=== PATIENT | female | born 1950 | race Caucasian/White ===

== ENCOUNTER → 2019-12-03 14:33 | Outpatient (BNVA) | payer MEDICARE, SELFPAY | PROVIDERS: Family Provider Family Medicine; PCP Family Medicine; Visit Provider Internal Medicine Cardiovascular Disease | DX: I10 Essential (primary) hypertension (principal); R60.0 Localized edema; R07.89 Other chest pain | CPT/HCPCS: 80048 ==

== ENCOUNTER 2019-12-06 12:05 | Outpatient (CLI) | payer MEDICARE, SELFPAY ==
--- NOTE | 2019-12-06 12:12 | XR_ITS ---
WS: [id number] LEFT KNEE: 3 VIEW(S) TECHNIQUE: AP, oblique(s) and lateral. HISTORY: KNEE PAIN LEFT COMPARISON: None available. No fracture or dislocation. Diffuse osteopenia. Hypertrophic osteophytes from the medial lateral joint lines and also at the hurt llofemoral joint space. Most significant narrowing is at the patellofemoral joint space. No joint effusion. No soft tissue abnormality. XR/XR knee LT 3V* 61275 IMPRESSION: Moderate tricompartment osteoarthritis, most significant involving the patellof emoral joint space.
== END 2019-12-06 12:06 | disposition home or self-care (01) ==
LOC: RADWPI 12:10
PROVIDERS: Family Provider Family Medicine; PCP Family Medicine; Referring Provider Family Medicine; Visit Provider Family Medicine
DX: M17.12 Unilateral primary osteoarthritis, left knee (principal); M25.562 Pain in left knee
CPT/HCPCS: 73562

== ENCOUNTER → 2021-09-08 11:17 | Outpatient (BNVA) | payer MEDICARE, SELFPAY | PROVIDERS: Family Provider Family Medicine; PCP Family Medicine; Visit Provider Specialist | DX: M25.562 Pain in left knee (principal); M17.12 Unilateral primary osteoarthritis, left knee | CPT/HCPCS: 73560; 73565 ==

== ENCOUNTER 2022-03-18 13:16 | Emergency (ER) | payer OTHER, MEDICARE, SELFPAY ==
--- NOTE | 2022-03-18 13:31 | XR_ITS ---
WS: [email or web address] Exam: XR wrist RT 2V [id number] Date/Time of Exam: 03/18/2022 1:34 PM Reason For Exam: eval for injuries There is an impacted comminuted fracture of the distal radial metaphysis. There is shortening. There is mild dorsal angulation of the articulating surface. There is an avulsion fracture of the ulnar sty loid. Soft tissue swelling about the wrist. XR/XR wrist RT 2V 53184 IMPRESSION: 1. Fracture distal radius with some dorsal angulation as noted above. 2. Avulsion fracture of the ulnar styloid.
--- NOTE | 2022-03-18 13:31 | XR_ITS ---
WS: [id number] Exam: XR forearm RT 2V 72384 Date/Time of Exam: 03/18/2022 1:34 PM Reason For Exam: eval for injuryy Again noted are fractures of the distal radius and ulna as previously described. Remaining aspects of the forearm are intact. Soft tissues are unremarkable. XR/XR forearm RT 2V 69851 IMPRESSION: 1. Fractures of the distal right radius and ulna as previously noted. Remaining aspects of the forearm are intact.
[2022-03-18 13:35] VITALS: BP 157/87; PULSE 68; RESP 18; TEMP 36.6; O2SAT 98; BMI 35.4
--- NOTE | 2022-03-18 14:43 | XR_ITS ---
WS: [email or web address] Exam: XR elbow RT 2V [id number] Date/Time of Exam: 03/18/2022 3:14 PM Reason For Exam: eval for elbow fracture No acute fracture or dislocation. No joint effusion. Minimal DJD. XR/XR elbow RT 2V 82221 IMPRESSION: 1. No acute fracture or dislocation.
--- NOTE | 2022-03-18 14:46 | W.ED.GENADLT ---
HPI - General Adult General: Chief complaint: Fall Stated complaint: right arm & wrist injury Time Seen by Provider: 03/18/22 13:58 History of Present Illness: Patient is 72-year-old female presents emergency room with complaints of right wrist pain after fall. Patient was eating at a [employer] restaurant when she slipped and fell onto the right side. Patient has no other complaints other than right wrist pain and swelling. Patient has pain in her head, is not on anticoagulation. Denies any other medical past medical problem. Onset:12pm Duration:2 hrs Location:outside Severity:moderate Associated symptoms: Deny chest pain, dyspnea, nausea, rash, palpitations or vomiting Review of Systems Const: Denies: fever(s) or chills Eyes: Denies: change in vision ENMT: Denies: mouth pain Card: Denies: chest pain or palpitations Resp: Denies: dyspnea or non-productive cough GI: Denies: abdominal pain, nausea, vomiting or diarrhea : Denies: dysuria Musc: Reports: extremity pain (+R forearm/wrist pain and swelling) Skin/Breast: Denies: rash or new lesions Neuro: Denies: weakness in extremities Psych: Reports: other (Normal mood) Amado/Lymph: Denies: easy bruising PFSH ED PFSH: Medical History Atypical chest pain Benign essential HTN Right leg swelling Family History Other Aortic valve disorder CAD (coronary artery disease) Diabetes Hypertension Stroke Social History Smoking and tobacco status: never smoked Alcohol intake: never Physical Exam Const: COMMON NORMALS: alert HENMT: COMMON NORMALS: atraumatic HEAD & SCALP: atraumatic MOUTH: moist mucous membranes not abnormal Eye: COMMON NORMALS: EOMs intact bilaterally and conjunctivae normal CONJUNCTIVA: Yes conjunctivae normal Neck/C-Spine: COMMON NORMALS: full ROM and supple Resp: COMMON NORMALS: normal respiratory effort and clear to auscultation bilaterally AUSCULTATION: clear to auscultation bilaterally Cardio: COMMON NORMALS: regular rate RATE: regular rate GI: COMMON NORMALS: Soft to palpation and non-tender PALPATION: Yes Soft to palpation Extremity: OTHER: + Decreased range of motion of right wrist due to significant pain, swelling and mild deformity of the right wrist, cap refill less than 2 seconds, 2+ radial pulses radial pusles, sensation intact in the right radial/median/ulnar distribution, patient is able to perform Ok/thumbs up/fist signs without difficulties Neuro: SENSORIUM/ORIENTATION: Yes alert MOTOR EXAM: No Abnormal motor strength present and Other motor observations present (no focal motor deficits) Psych: COMMON NORMALS: speech normal SPEECH: Yes normal speech MOOD & AFFECT: Yes euthymic mood Procedures Nerve Block Nerve Block 1: Time out performed: Yes Local Anesthetic: lidocaine 1% Amount of anesthesia used (mL): 6 Side: right Nerve Blocks: other (hematoma block around the R distal radial fracture) Procedure Successful: Yes Patient Tolerated Procedure: well Complications: none Additional Comments: Because of this patient's pain at the site of the fracture. I performed a local hematoma block to help alleviate the pain and allow for the possibility of closed reduction of this patient's fracture. ? Before doing this procedure, I did check the patient's distal neurovascular status. There is some mild decreased range of motion which I attributed to the pain but no evidence of obvious vascular or neurological compromise. ? Then, I identified the appropriate landmarks, and I sterilely prepped the skin at the insertion site.?? Using plain lidocaine, I inserted the needle and withdrew to make sure I was not in a blood vessel, then I slowly injected approximately 5 or 6 mls in the region of the fracture site.? The patient appeared to tolerate the procedure well and her pain was improved.?? Repeat evaluation of the distal extremity revealed no change or compromise in the vascular integrity. Orthopedic Fracture Reduction Fracture #1: Time Out Performed: Yes Side: right Fracture Reduction Location: radius Analgesia: hematoma block Technique: direct manipulation and finger traps Post Reduction X-rays Demonstrate: acceptable reduction Post-reduction neuro exam: intact Post-reduction vascular exam: intact Splint Applied: Yes Patient Tolerated Procedure: well and no complications Course Vital Signs: Vital signs: Vital Signs Temperature 97.8 F 03/18/22 13:35 Pulse Rate 67 03/18/22 17:18 Respiratory Rate 20 H 03/18/22 17:18 Blood Pressure 167/91 03/18/22 17:18 Pulse Oximetry 99 03/18/22 17:18 MDM - General Adult Medical Decision Making 72-year-old female presenting with similar complaints of right wrist pain and swelling. On physical exam, neurovascular intact in the right extremity, right distal radial/ulnar tenderness palpation with swelling and mild deformity. X-ray shows distal radial fracture with mild dorsal angulation. Case was discussed with Dr. Gregorio who recommended reduction. Please refer to the procedure note for reduction after a informed consent. A hematoma block was performed after an informed consent. Patient is placed in a radial gutter splint. Vascular intact post splint. Post reduction x-ray shows improvement in angulation. I have given patient follow up with our lead case manager to be seen by Dr. Gregorio for follow up of fracture. Patient aware of a call from our lead case manager to schedule for appointment(s) and verbalizes understanding of the importance of following up. Rx percocet PRN pain Disposition: Discharge. Patient counseled regarding diagnostic impression, treatment plan. Patient given ED strict return precautions to return for continuation, worsening, or development of new symptoms. Instructed to f/u w/ Dr. Gregorio regarding symptoms today. Patient verbalized understanding. She is given strict return precaution for any signs of compartment syndrome. Lab Data Radiology Impressions Forearm X-Ray 03/18/22 13:31 IMPRESSION: 1. Fractures of the distal right radius and ulna as previously noted. Remaining aspects of the forearm are intact. Elbow X-Ray 03/18/22 14:43 IMPRESSION: 1. No acute fracture or dislocation. Wrist X-Ray 03/18/22 16:39 IMPRESSION: Improved alignment of the comminuted fracture of the distal radius and ulnar styloid process avulsion fracture post reduction. Imaging Data Other Imaging: Radiologist's impression: [address] [place] [address] XRay Report Signed Patient: Rachel Villalba Unit #: [id number] : 1950 Age/Sex: 72 / F ADM Date: 03/18/22 Loc: ER Room/Bed: Attending Dr: Ordering Provider/Ordering MD: Radha Maradiaga MD Date of Service: 03/18/22 Procedure(s): XR wrist RT 2V 16982 Accession Number(s): [id number] Report Number: [id number] WS: [email or web address] Exam: XR wrist RT 2V 40563 Date/Time of Exam: 03/18/2022 1:34 PM Reason For Exam: eval for injuries There is an impacted comminuted fracture of the distal radial metaphysis. There is shortening. There is mild dorsal angulation of the articulating surface. There is an avulsion fracture of the ulnar styloid. Soft tissue swelling about the wrist. XR/XR wrist RT 2V 90979 IMPRESSION: 1. Fracture distal radius with some dorsal angulation as noted above. 2. Avulsion fracture of the ulnar styloid. ? Dictated By: Arash Gu DO Signed By: Arash Gu DO Signed Date/Time: 03/18/22 1419 DD/ [address] [place] [address] XRay Report Signed Patient: Rachel Villalba Unit #: [id number] : 1950 Age/Sex: 72 / F ADM Date: 03/18/22 Loc: ER Room/Bed: Attending Dr: Ordering Provider/Ordering MD: Radha Maradiaga MD Date of Service: 03/18/22 Procedure(s): XR forearm RT 2V 23352 Accession Number(s): [id number] Report Number: [id number] WS: [email or web address] Exam: XR forearm RT 2V 01482 Date/Time of Exam: 03/18/2022 1:34 PM Reason For Exam: eval for injuryy Again noted are fractures of the distal radius and ulna as previously described. Remaining aspects of the forearm are intact. Soft tissues are unremarkable. XR/XR forearm RT 2V 68552 IMPRESSION: 1. Fractures of the distal right radius and ulna as previously noted. Remaining aspects of the forearm are intact. ? Dictated By: Arash Gu DO Signed By: Arash Gu DO Signed Date/Time: 03/18/22 1421 DD/ [address] [place] [address] XRay Report Signed Patient: Rachel Villalba Unit #: [id number] : 1950 Age/Sex: 72 / F ADM Date: 03/18/22 Loc: ER Room/Bed: Attending Dr: Ordering Provider/Ordering MD: Radha Maradiaga MD Date of Service: 03/18/22 Procedure(s): XR wrist RT 2V 48511 Accession Number(s): [id number] Report Number: [id number] PROCEDURE INFORMATION: Exam: XR Right Wrist Exam date and time: 03/18/2022 4:43 PM Age: 72 years old Clinical indication: Screening exam; Post reduction TECHNIQUE: Imaging protocol: XR Right wrist. Views: 1 or 2 views. COMPARISON: CR XR wrist RT 2V [id number] 03/18/2022 1:46 PM FINDINGS: Bones/joints: Improved alignment of the comminuted fracture of the distal radius and ulnar styloid process avulsion fracture post reduction. 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 Soft tissues: Normal. XR/XR wrist RT 2V 89434 IMPRESSION: Improved alignment of the comminuted fracture of the distal radius and ulnar styloid process avulsion fracture post reduction. ? Dictated By: David Izaguirre DO Signed By: David Izaguirre DO Signed Date/Time: 03/18/22 1700 DD/ [address] [address] XRay Report Signed Patient: Rachel Villalba Unit #: [id number] : 1950 Age/Sex: 72 / F ADM Date: 03/18/22 Loc: ER Room/Bed: Attending Dr: Ordering Provider/Ordering MD: Radha Maradiaga MD Date of Service: 03/18/22 Procedure(s): XR wrist RT 2V 46714 Accession Number(s): [id number] Report Number: [id number] PROCEDURE INFORMATION: Exam: XR Right Wrist Exam date and time: 03/18/2022 4:43 PM Age: 72 years old Clinical indication: Screening exam; Post reduction TECHNIQUE: Imaging protocol: XR Right wrist. Views: 1 or 2 views. COMPARISON: CR XR wrist RT 2V 70045 03/18/2022 1:46 PM FINDINGS: Bones/joints: Improved alignment of the comminuted fracture of the distal radius and ulnar styloid process avulsion fracture post reduction. 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 Soft tissues: Normal. XR/XR wrist RT 2V 53272 IMPRESSION: Improved alignment of the comminuted fracture of the distal radius and ulnar styloid process avulsion fracture post reduction. ? Dictated By: David Izaguirre DO Signed By: David Izaguirre DO Signed Date/Time: 03/18/22 1700 DD/ 1643 Discharge Plan Discharge Patient Disposition: Home Clinical Impression: Radial head fracture Condition: Stable Prescriptions: New Percocet 5-325 mg tablet 1 tab PO Q8H PRN (Reason: pain) Qty: 9 0RF No Action losartan 50 mg tablet 50 mg PO DAILY 0RF celecoxib [Celebrex] 200 mg capsule 200 mg PO DAILY 0RF Discharge Orders: Discharge ED (Routine); Ordered 03/18/22 Ordered By: Radha Maradiaga Referrals: Terry Mensah DO [Primary Care Provider] - Discharge Diet: Advance as tolerated Discharge Activity: Increase activity as tolerated Patient Instructions: Arm Fracture in Adults (ED), Opioid Safety Activity Restrictions/Additional Instructions: Our lead case manager will have you follow-up with Dr. Gregorio in the next few days. You would be expected to have a phone call with our lead case manager who will put you on the schedule. You can expect a call from us in the next 2-3 days. If you don't hear from us, call us back in the emergency room at [phone]. Take off the splint if you have any significant pain, numbness, inability to move your finger swelling, or any new concerning complaints. Take your pain medicine as instructed. Come back to the emergency room you have new external complaints. Coding Level of Care Code ED Fine Grade Bulldozer Operator for Veronika Glover Exam Comprehensive
[2022-03-18] MEDS: diphenhydrAMINE 50 mg/mL SDV 1mL IVP (15:52)
--- NOTE | 2022-03-18 15:53 | PC.NURSE ---
Dr acevedo used lidocaine and benadryl for injection to the right wrist pt was then placed in finger traps wrist reduced by pt tolerated well splint made with 4 in inch ortho glass and 2 inch mick and 4 inch mick pt tolerated well, sling applied
--- NOTE | 2022-03-18 16:39 | XRR_ITS ---
PROCEDURE INFORMATION: Exam: XR Right Wrist Exam date and time: 03/18/2022 4:43 PM Age: 72 years old Clinical indication: Screening exam; Post reduction TECHNIQUE: Imaging protocol: XR Right wrist. Views: 1 or 2 views. COMPARISON: CR XR wrist RT 2V 75007 03/18/2022 1:46 PM FINDINGS: Bones/joints: Improved alignment of the comminuted fracture of the distal radius and ulnar styloid process avulsion fracture post reduction. 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 Soft tissues: Normal. XR/XR wrist RT 2V 38234 IMPRESSION: Improved alignment of the comminuted fracture of the distal radius and ulnar styloid process avulsion fracture post reduction.
[2022-03-18 17:18] VITALS: BP 167/91; PULSE 67; RESP 20; O2SAT 99
--- NOTE | 2022-03-21 09:52 | DCPLANNER ---
Addendum entered by Mckenzie Ryder 03/22/22 08:38: Patient had a follow up appointment scheduled for 03.21.[address] Gregorio at ortho - patient did attend appointment. Original Note: slot operations manager had message to schedule a follow up appointment for patient with ortho. slot operations manager sent patients information to the front office staff at ortho. Patients information will be printed and reviewed. Clinic will call patient with appointment information.
== END 2022-03-18 17:16 | disposition home or self-care (01) ==
PROVIDERS: Emergency Provider Emergency Medicine; PCP Family Medicine
DX: S52.501A Unspecified fracture of the lower end of right radius, initial encounter for closed fracture (principal); S52.611A Displaced fracture of right ulna styloid process, initial encounter for closed fracture; W01.0XXA Fall on same level from slipping, tripping and stumbling without subsequent striking against object, initial encounter; Y93.89 Activity, other specified; Y92.511 Restaurant or cafe as the place of occurrence of the external cause
CPT/HCPCS: 25605; 64450; 73070; 73090; 73100; 99283; J1200

== ENCOUNTER 2022-03-21 16:22 | Outpatient (CLI) | payer OTHER, SELFPAY | END 2022-03-21 16:23 | disposition home or self-care (01) | LOC: SPT 16:23 | PROVIDERS: PCP Family Medicine; Visit Provider Specialist | DX: Z46.89 Encounter for fitting and adjustment of other specified devices (principal); S52.591D Other fractures of lower end of right radius, subsequent encounter for closed fracture with routine healing; X58.XXXD Exposure to other specified factors, subsequent encounter | CPT/HCPCS: 97760; L3982 ==

== ENCOUNTER → 2022-04-18 14:51 | Day surgery (SDC) | payer OTHER, MEDICARE, SELFPAY | PROVIDERS: PCP Family Medicine; Visit Provider Specialist | DX: S52.501G Unspecified fracture of the lower end of right radius, subsequent encounter for closed fracture with delayed healing (principal); S52.601G Unspecified fracture of lower end of right ulna, subsequent encounter for closed fracture with delayed healing; W19.XXXD Unspecified fall, subsequent encounter | CPT/HCPCS: 73110; 99214 ==

== ENCOUNTER 2022-04-21 11:10 | Day surgery (SDC) | payer OTHER, SELFPAY ==
[2022-04-20 09:21] VITALS: BMI 34.3
[2022-04-21] VITALS (7 sets, daily range): BP systolic 100–179; BP diastolic 72–115; PULSE 62–80; RESP 15–18; TEMP 36.2–36.9; O2SAT 91–99
--- NOTE | 2022-04-21 | XR_ITS ---
WS: [id number] Exam: XR wrist RT 2V [id number] Date/Time of Exam: 04/21/2022 12:00 AM Reason For Exam: OR PICS RT WRIST AP and lateral C-arm images of the right wrist are submitted for evaluation. Comparison made to prior study 04/18/2022. There is volar plate and screw fixation involving a fracture of the distal radius. Alignment is anato luz for healing. There is also a transverse fracture through the base of the ulnar styloid unchanged in appearance. XR/XR wrist RT 2V 77037 IMPRESSION: 1. Internal fixation involving a fracture of the distal radius now in the anato luz position for healing. Ulnar styloid fracture.
--- NOTE | 2022-04-21 | SCC_ITS ---
Procedure done: Takedown of early malunion with open reduction internal fixation of right distal radius fracture including bone grafting with [place] DBM plus putty with cancellous bone 74.6 seconds of fluoroscopic guidance, for a cumulative dose of 1.19 mGy, was provided to Dr. Gregorio by the radiology department. C-arm images of the right wrist were saved for the patient's permanent record. RANCHOD
[2022-04-21] MEDS: sodium chloride 0.9% 1,000 ML 30 ML IV (11:55)
[2022-04-21] MEDS: acetaminophen 1,000 MG/100 ML PIGGYBACK 400 MG IV (11:55)
[2022-04-21 12:20] LABS: Blood Urea Nitrogen 21 mg/dL (8-23); Calcium 9.6 mg/dL (8.5-10.5); Carbon Dioxide 26 mmol/L (22-29); Chloride 106 mmol/L (98-107); Creatinine Clr Calc Pharmacy 71.3868; Glomerular Filtration Rate 70.9 mL/min (90-130); Glucose 89 mg/dL (65-115); Osmolality Calculated 296 mOsm/kg (285-295); Sodium 142 mmol/L (136-145)
--- NOTE | 2022-04-21 12:39 | ANES.PREANE2 ---
Pre-Anesthetic Assessment Height/Weight: Height 1.63 m Weight 90.718 kg Temp Pulse Resp BP Pulse Ox 98.5 F 62 18 179/115 98 04/21/22 11:31 04/21/22 11:31 04/21/22 11:31 04/21/22 11:31 04/21/22 11:31 Preop Diagnosis: Closed distal radius and ulnar fractures Operation Date: 04/21/22 13:00 Proposed Procedures p Wrist ORIF Distal Radius RT WRIST W/BONE GRAFTING 23722/S52.5(Right) - Gia Gregorio MD Familial anesthetic complications: None Was Beta Arnaldo taken within 24 hours: N/A Was Clonidine taken within 24 hours: N/A Last intake: Intake Last Liquid Date 04/20/22 Last Liquid Time 22:00 Last Solid Date 04/20/22 Last Solid Time 22:00 Social No alcohol and No tobacco Exam alert, oriented x 3, clear to auscultation bilaterally and regular rate & rhythm Airway Mallampati: Class II Dentition: full Pulmonary None reported CV/HEM Hypertension None reported Hepatic None reported GI None reported Metabolic None reported Musc/skel None reported Neuropsych None reported Anesthetic Plan Anesthesia: General and Regional (specify below) Risk of > 500 ml blood loss (7ml/kg in children): No Medications/Allergies Home Medications Medication Instructions Recorded Confirmed Last Taken Type losartan 50 mg tablet 50 mg PO DAILY tab 12/03/19 04/21/22 04/20/22 History celecoxib 200 mg capsule (Celebrex) 200 mg PO DAILY 09/08/21 04/21/22 04/21/22 History oxycodone-acetaminophen 5 mg-325 1 tab PO Q8H PRN #9 tab 03/18/22 04/21/22 03/18/22 Rx mg tablet (Percocet) Fast form cast #1 ea 03/21/22 04/18/22 Unknown Rx Allergies Allergy/AdvReac Type Severity Reaction Status Date / Time amlodipine Allergy Unknown edema Verified 04/20/22 09:19 Current Medications Generic Name Dose Route Start Last Admin Trade Name Freq PRN Reason Stop Dose Admin Sodium Chloride 1,000 mls @ 30 mls/hr 04/21/22 11:30 04/21/22 11:55 Sodium Chloride 0.9% IV 04/22/22 11:29 30 mls/hr .Q24H ESTEPHANIA Administration PFSH Anesthesia Medical History Atypical chest pain Benign essential HTN Right leg swelling Family History Other Aortic valve disorder CAD (coronary artery disease) Diabetes Hypertension Stroke Social History Smoking and tobacco status: never smoked Alcohol intake: never Data Anesthesia : 04/21/22 11:45 BMP 04/21/22 11:45 Sodium 142 Potassium 4.0 Chloride 106 Carbon Dioxide 26 BUN 21 Creatinine 0.8 Glucose 89 Calcium 9.6 Cardiac Studies: No Data to Display
--- NOTE | 2022-04-21 12:39 | ANES.PROC ---
Anesthesia Procedures Procedure/Date: 04/21/22 Nerve Block ^: Nerve Block 1: Main Anesthesia: general anesthesia Time Out Performed: Yes Consent: requested by attending/covering physician, from patient, risks and benefits reviewed and patient agrees to proceed Nerve block location: axillary (R) Nerve block position: supine Anesthetic Used: ropivicaine 0.5% (30) and with decadron (4 mg) Ultrasound used to: recognize landmarks and visualize and ID brachial plexus Interscalene/Femoral BLK: 2 stimuplex 22 g needle used for position and inplane approach, visualize local anesthetic spread and no vascular puncture identified Injection: neg aspiration of heme Patient Tolerated Procedure: well Complications: none
--- NOTE | 2022-04-21 12:58 | P.HPUD_ITS ---
Surgery/Procedure H&P Update DATE OF PROCEDURE: April 21, 2022 DATE H&P PERFORMED: 04/18/22 H&P UPDATE INFORMATION: I have reviewed H&P completed within last 30 days, I have examined patient prior to procedure, No changes to prior documentation and H&P is in [facility] EMR on date indicated PREOP DIAGNOSIS: Closed distal radius and ulnar fractures PLANNED PROCEDURE: Operation Date: 04/21/22 13:00 Proposed Procedures p Wrist ORIF Distal Radius RT WRIST W/BONE GRAFTING /S52.5(Right) - Gia Gregorio MD Related Problem List Diagnoses (1) Closed fracture of distal ends of right radius and ulna: Qualifiers: Encounter type: subsequent encounter Fracture healing: with delayed healing Qualified Code(s): S52.501G - Unspecified fracture of the lower end of right radius, subsequent encounter for closed fracture with delayed healing; S52.601G - Unspecified fracture of lower end of right ulna, subsequent encounter for closed fracture with delayed healing
[2022-04-21] MEDS: CELEcoxib 200 mg Capsule PO (13:05)
[2022-04-21] MEDS: ceFAZolin 1,000 mg SDV 1000 MG IRRIGATION (13:47)
--- NOTE | 2022-04-21 15:05 | P.OP_ITS ---
Operative Report Date of procedure: April 21, 2022 Pre-op diagnosis: Closed right distal radius and ulnar fractures with loss of reduction and early malunion Post-op diagnosis: Closed right distal radius and ulnar fractures with loss of reduction and early malunion Post-op findings: Malunion with bone loss at the fracture site. Procedure done: Takedown of early malunion with open reduction internal fixation of right distal radius fracture including bone grafting with [place] DBM plus putty with cancellous bone Implants: [place] extra small short 3-hole narrow right volar wrist plate, distal radius with bone grafting including Jevon DBM plus putty with cancellous bone chips, 10 cc. 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 Significa nt shortening of the distal radius. Condition: stable Disposition: PACU (Then to same-day surgery for discharge home with family) Brief History: This 72-year-old female patient presented after a fall while at a [employer]. 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 DOI 03/18/22. Patient is 4 weeks post injury, but she presented to the office with obvious malposition of her fracture over the previous imaging studies. After discussion with the patient and due to the significant shortening of the radius relative to the ulna, it was recommended that she undergo takedown of her early malunion and open reduction internal fixation to include bone grafting. The patient was in agreement. Consents were signed. Questions were answered. Procedure: Patient was brought to the operating theater, and after undergoing adequate general anesthesia, per LMA, ASA 2, the patient's right upper extremity was prepped and draped in usual fashion utilizing DuraPrep.? Preoperatively, supplemental block was placed uneventfully in the preop holding area. The patient had a tourniquet placed high on the arm prior to prepping and draping.? Following prepping and draping, the arm was exsanguinated and the tourniquet was elevated.? Total tourniquet time was 71 minutes at 250 mmHg.? Prior to commencement of the surgical procedure, a surgical pause was performed.? At the time of the surgical pause, we confirmed the site and side of surgery as well as the patient's identity and preoperative surgical markings.? We also confirmed availability of equipment and appropriate preoperative IV antibiotics which was Ancef 2 g.? Fluoroscopy was also brought into position so that we could visualize the fracture and hardware throughout the surgical procedure.? The fracture was evaluated prior to tourniquet placement. Following elevation of the tourniquet as well as the surgical pause, appropriate plate was chosen. The skin was marked for appropriate incision length and location. An incision was made along the palmaris longus and continued down onto the volar surface of the radius.? Care was taken to avoid injury throughout the surgical procedure to the median nerve as well as to the radial artery.? The flexor carpi radialis was retracted medially.? We were able to essentially elevate the sheath of the flexor carpi radialis, and then I was able to place my finger directly onto the distal radius.? For the most part, the patient did her own dissection at the time of her injury, but there was early healing of the pronator quadratus.? Soft tissues were elevated off the distal radius to allow access to the fracture and also to the volar aspect of the distal radial shaft.? Reduction required takedown of the fibrous nonunion. Elevation of soft tissues from the distal fragment as well as the proximal fragment was then required to allow manipulation of the fracture with a Bartow and [place] elevator secondary to the significant displacement and angulation.? Fluoroscopy was used to determine whether or not the reduction was appropriate.? We were able to reduce the fracture nearly anatomically, and bone graft was placed in the form of DBM putty plus to help fill the void left by the reduction. We then evaluated the plate and chose the extra small, short narrow [place] volar wrist plate. The plate was attached proximally and distally without difficulty.? A combination of locking and 1 nonlocking screws were utilized to attach the plate.? We had excellent fixation and reduction of the fracture. Fluoroscopy was utilized during the procedure.? Once the plate was fully attached, we had a near anatomic position to the distal radius and the distal radius was out to length.? Being satisfied with position, the area was copiously irrigated. There were no fascial tissues to close, and therefore, we closed the subcutaneous tissues with 3-0 interrupted Monocryl.? Skin was closed in a subcuticular fashion with 4-0 Monocryl.?Sterile dressing was then placed consisting of Dermabond, Steri-Strips, OpSite, fluffed fluffs, sterile soft roll, a volar splint, and an Vladimir wrap. The tourniquet was released after 71 minutes. There were no complications. There were no specimens. The procedure was well tolerated. Plan is the patient will be discharged home. Related Problem List Diagnoses (1) Closed fracture of distal ends of right radius and ulna:
== END 2022-04-21 15:55 | disposition home or self-care (01) ==
PROVIDERS: Anesthesiology; PCP Family Medicine; Visit Provider Specialist
PROC: (CPT 20900; principal; 2022-04-21 13:00)
DX: S52.501P Unspecified fracture of the lower end of right radius, subsequent encounter for closed fracture with malunion (principal); S52.601P Unspecified fracture of lower end of right ulna, subsequent encounter for closed fracture with malunion; W01.0XXA Fall on same level from slipping, tripping and stumbling without subsequent striking against object, initial encounter; Y92.511 Restaurant or cafe as the place of occurrence of the external cause; I10 Essential (primary) hypertension
CPT/HCPCS: 20900; 25607; 36415; 64417; 73100; 76000; 76942; 80048; C1713; J0690; J1100; J2405; J2704; J2795; J3010; J7030

== ENCOUNTER → 2022-04-28 08:55 | Outpatient (BNVA) | payer OTHER, SELFPAY | PROVIDERS: PCP Family Medicine; Visit Provider Specialist | DX: S52.501P Unspecified fracture of the lower end of right radius, subsequent encounter for closed fracture with malunion (principal); S52.601P Unspecified fracture of lower end of right ulna, subsequent encounter for closed fracture with malunion; X58.XXXD Exposure to other specified factors, subsequent encounter | CPT/HCPCS: 73110 ==

== ENCOUNTER → 2022-05-18 10:36 | Outpatient (BNVA) | payer OTHER, SELFPAY | PROVIDERS: PCP Family Medicine; Visit Provider Specialist | DX: S52.501A Unspecified fracture of the lower end of right radius, initial encounter for closed fracture (principal); S52.601A Unspecified fracture of lower end of right ulna, initial encounter for closed fracture; X58.XXXA Exposure to other specified factors, initial encounter | CPT/HCPCS: 73110 ==

== ENCOUNTER 2022-06-01 07:30 | Outpatient (RCR) | payer OTHER, SELFPAY | END 2022-06-26 23:59 | disposition home or self-care (01) | LOC: SOT 07:30 | PROVIDERS: PCP Family Medicine; Referring Provider Specialist; Visit Provider Specialist | DX: S52.501D Unspecified fracture of the lower end of right radius, subsequent encounter for closed fracture with routine healing (principal); S52.601D Unspecified fracture of lower end of right ulna, subsequent encounter for closed fracture with routine healing | CPT/HCPCS: 97035; 97110; 97140; 97166; 97530 ==

== ENCOUNTER → 2022-06-15 08:33 | Outpatient (BNVA) | payer OTHER, SELFPAY | PROVIDERS: PCP Family Medicine; Visit Provider Specialist | DX: S52.501A Unspecified fracture of the lower end of right radius, initial encounter for closed fracture (principal); S52.601A Unspecified fracture of lower end of right ulna, initial encounter for closed fracture; X58.XXXA Exposure to other specified factors, initial encounter | CPT/HCPCS: 73110 ==

== ENCOUNTER 2022-06-27 06:00 | Outpatient (RCR) | payer OTHER, SELFPAY | END 2022-07-27 23:59 | disposition home or self-care (01) | LOC: SOT 06:00 | PROVIDERS: PCP Family Medicine; Referring Provider Specialist; Visit Provider Specialist | DX: S52.501D Unspecified fracture of the lower end of right radius, subsequent encounter for closed fracture with routine healing (principal); S52.601D Unspecified fracture of lower end of right ulna, subsequent encounter for closed fracture with routine healing; X58.XXXD Exposure to other specified factors, subsequent encounter | CPT/HCPCS: 97035; 97110; 97140; 97530 ==

== ENCOUNTER 2022-07-13 14:12 | Outpatient (CLI) | payer MEDICARE, SELFPAY ==
--- NOTE | 2022-07-13 14:30 | XR_ITS ---
WS: [id number] SCREENING DEXA SCAN [employer] CLINICAL INFORMATION: recent fractures, falling COMPARISON: 2018 FINDINGS: The L1-L4 bone mineral density measures 0.873 g/cm2. This corresponds to a T score score of -2.6 and Z score of -1.9. Left femoral neck bone mineral density measures 0.671 g/cm2. This corresponds to a T score of -2.7 an d Z score of -1.9. Right femoral neck bone mineral density measures 0.771 g/cm2. This corresponds to a T score -1.9of an d Z score of -1.1. Mean femoral neck bone mineral density measures 0.721 g/cm2. This corresponds to a T score of -2.3 an d Z score of -1.5. XR/XR DEXA axial skeleton* [id number] IMPRESSION: Osteoporosis lumbar spine. Osteoporosis LEFT femoral neck. Osteopenia RIGHT fem oral neck. Patient's FRAX calculated 10 year probability for major osteoporotic fracture i s 31.6 % and osteoporotic hip fracture is 10.3%. Bone mineral density lumbar spine decreased -11.6% since 2018. Bone mineral density in the femoral necks decreased -4.1% since 2018.
== END 2022-07-13 14:13 | disposition home or self-care (01) ==
LOC: RAD 14:12
PROVIDERS: PCP Family Medicine; Visit Provider Family Medicine
DX: M17.11 Unilateral primary osteoarthritis, right knee (principal); M17.12 Unilateral primary osteoarthritis, left knee; S52.501D Unspecified fracture of the lower end of right radius, subsequent encounter for closed fracture with routine healing; S52.601D Unspecified fracture of lower end of right ulna, subsequent encounter for closed fracture with routine healing; M81.0 Age-related osteoporosis without current pathological fracture; W19.XXXD Unspecified fall, subsequent encounter; M85.88 Other specified disorders of bone density and structure, other site
CPT/HCPCS: 77080

== ENCOUNTER 2023-01-16 12:13 | Emergency (ER) | payer OTHER, SELFPAY ==
[2023-01-16 12:21] VITALS: BP 142/104; PULSE 86; RESP 16; TEMP 36.3; O2SAT 97
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
== END 2023-01-16 14:10 | disposition home or self-care (01) ==
PROVIDERS: Emergency Provider Family Medicine; PCP Family Medicine
DX: S33.5XXA Sprain of ligaments of lumbar spine, initial encounter (principal); I10 Essential (primary) hypertension; V89.2XXA Person injured in unspecified motor-vehicle accident, traffic, initial encounter
CPT/HCPCS: 72100; 99283

== ENCOUNTER → 2023-06-07 08:51 | Outpatient (BNVA) | payer BC, SELFPAY | PROVIDERS: PCP Family Medicine; Visit Provider Family Medicine | DX: R73.09 Other abnormal glucose (principal); E55.9 Vitamin D deficiency, unspecified; G47.10 Hypersomnia, unspecified; Z13.220 Encounter for screening for lipoid disorders; Z51.81 Encounter for therapeutic drug level monitoring | CPT/HCPCS: 80053; 80061; 82306; 83036; 85025 ==

== ENCOUNTER 2023-06-28 08:28 | Outpatient (CLI) | payer BC, SELFPAY ==
--- NOTE | 2023-06-28 08:32 | MM_ITS ---
WS: [id number] BILATERAL SCREENING DIGITAL TOMOSYNTHESIS MAMMOGRAM WITH CAD HISTORY: SCREENING COMPARISON: None available. Bilateral CC and MLO views with tomosynthesis and synthetic mammography submitted. Computer aided det ection analyzed. Breast composition: There are scattered areas of fibroglandular density. No suspicious masses, microc alcifications or architectural distortion. MM/[place] [id number] IMPRESSION: BI-RADS: 1-Negative FOLLOW UP: 1 Year Follow-up
== END 2023-06-28 08:29 | disposition home or self-care (01) ==
PROVIDERS: PCP Family Medicine; Visit Provider Family Medicine
DX: Z12.31 Encounter for screening mammogram for malignant neoplasm of breast (principal)
CPT/HCPCS: 77063; 77067

== ENCOUNTER 2023-09-26 11:00 | Outpatient (CLI) | payer MEDICARE, SELFPAY | END 2023-09-26 11:01 | disposition home or self-care (01) | LOC: SLEEP 10-02 16:41 | PROVIDERS: PCP Family Medicine; Visit Provider Family Medicine | DX: G47.10 Hypersomnia, unspecified (principal); G47.33 Obstructive sleep apnea (adult) (pediatric) | CPT/HCPCS: G0399 ==

== ENCOUNTER 2024-07-02 10:52 | Outpatient (CLI) | payer MEDICARE, SELFPAY ==
--- NOTE | 2024-07-02 10:59 | XR_ITS ---
WS: [id number] XR chest 2V* [id number] REASON FOR EXAM: wheezing FINDINGS: Mild to moderate tortuosity and ectasia of the thoracic aorta. There is a large hiatal hernia. Normal heart size. Calcified granulomatous changes in both hemithoraces. There are reticular interstitial lung opacities in both lower lung marin with oblique linear opacity . There are areas of irregular aeration in the upper lung marin. The lungs are hyperexpanded. Moderate degenerative spondylosis in the thoracic spine with a gibbus deformity at T11-T12 due to ant erior wedging of the vertebral bodies which appears chronic with disc space narrowing and osteophytos is. 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 The opacities in the lower lung marin could represent chronic interstitial nicolle nges and atelectasis however acute or subacute pneumonitis is not excluded.
[2024-07-02 11:36] LABS: Basophils # 0.1 10^3/uL (0.0-0.1); Basophils % 0.5 %; Eosinophils # 0.2 10^3/uL (0.0-0.8); Eosinophils % 2.2 %; Hematocrit 41.9 % (36-47); Lymphocytes # 1.1 10^3/uL (0.8-4.8); Lymphocytes % 12.1 %; Mean Corpuscular HGB Conc 32.7 g/dL (30-55); Mean Corpuscular Hemoglobin 31.2 pg (27-33); Mean Corpuscular Volume 95.4 fl (85-98); Mean Platelet Volume 10.3 fL (7.4-10.4); Monocytes # 1.3 10^3/uL (0.2-0.9); Monocytes % 13.7 %; Neutrophils % 71.2 %; Nucleated Red Blood Cells % 0 %; Platelet Count 290 10^3/cmm (157-399); Red Blood Count 4.39 10^6/uL (3.85-5.65); Red Cell Distribution Width 12.1 % (12.1-15.1); White Blood Count 9.14 10^3/uL (3.29-11.43)
[2024-07-02 11:37] LABS: Erythrocyte Sedimentation Rate 16 mm/hr (0-15)
[2024-07-02 12:01] LABS: Alanine Aminotransferase 12 U/L (0-33); Albumin Level 3.8 g/dL (3.5-5.2); Alkaline Phosphatase 135 U/L (35-105); Anion Gap 15.9 (5-19); Aspartate Amino Transferase 15 U/L (0-32); Blood Urea Nitrogen 14 mg/dL (8-23); C Reactive Protein 29.1 mg/L (0.0-4.9); Calcium 9.2 mg/dL (8.5-10.5); Carbon Dioxide 24 mmol/L (22-29); Chloride 101 mmol/L (98-107); Globulin 3.7 g/dL (1.3-4.6); Glucose 112 mg/dL (65-115); NT Pro B Type Natriuretic Pept 356 pg/mL (0-125); Osmolality Calculated 285 mOsm/kg (285-295); Potassium 3.9 mmol/L (3.5-5.1); Sodium 137 mmol/L (136-145); Total Bilirubin 0.4 mg/dL (0.15-1.2); Total Protein 7.5 g/dL (6.6-8.7)
== END 2024-07-02 10:53 | disposition home or self-care (01) ==
LOC: LAB 10:55
PROVIDERS: PCP Family Medicine; Visit Provider Clinical Nurse Specialist Adult Health
DX: J20.9 Acute bronchitis, unspecified (principal); R06.2 Wheezing; I10 Essential (primary) hypertension
CPT/HCPCS: 36415; 71046; 80053; 83880; 85025; 85651; 86140

== ENCOUNTER 2024-07-26 08:55 | Outpatient (CLI) | payer MEDICARE, SELFPAY ==
--- NOTE | 2024-07-26 09:15 | USCV_ITS ---
Rachel Villalba Age: 74 Gender: F : 1950 Exam Date: 07/26/2024 09:06 Ordering Phys: Isidro Martínez NP Technologist: Keshav Hendrix Exam Location: [facility] [place] Indication: sob BP: 120 / 80 HR: 79 Rhythm: Sinus Technical Quality: Adequate MEASUREMENTS (Male / Female) Normal Values 2D ECHO LV Diastolic Diameter PLAX 4.3 cm 4.2 - 5.9 / 3.9 - 5.3 cm IVS Diastolic Thickness 1.1 cm 0.6 - 1.0 / 0.6 - 0.9 cm IVS Systolic Thickness 1.3 cm LVPW Diastolic Thickness 1.7 cm 0.6 - 1.0 / 0.6 - 0.9 cm LVPW Systolic Thickness 2.2 cm LVOT Diameter 2.0 cm LV Ejection Fraction 2D Teich 73.0 % LV Ejection Fraction MOD 4C 72.4 % LV Ejection Fraction MOD 2C 66.9 % LV Ejection Fraction 2C AL 67.3 % LA Diameter 3.6 cm Aorta at Sinotubular Diameter 2.5 cm IVC Diameter 2.1 cm M-MODE LA Ao Ratio MM 1.2 AV Cusp Separation MM 1.7 cm DOPPLER AV Peak Velocity 175.0 cm/s LVOT Peak Velocity 119.0 cm/s AV Area Cont Eq vti 1.9 cm squared AV Area Cont Eq pk 2.2 cm squared MV Peak Velocity 100.0 cm/s MV Area PHT 4.2 cm squared Mitral E to A Ratio 0.9 TV Peak Velocity 320.5 cm/s TR Peak Velocity 350.0 cm/s TR Peak Gradient 49.0 mmHg TR Mean Velocity 239.0 cm/s TR Mean Gradient 26.9 mmHg TR Velocity Time Integral 82.9 cm PV Peak Velocity 117.3 cm/s RV Ejection Time 0.3 s FINDINGS Left Ventricle Normal LV size ejection fraction of 72%. Mild concentric left- ventricular hypertrophy.no regional wall motion abnormalities. Grade I/IV diastolic dysfunction (abnormal relaxation filling pattern), normal to mildly elevated filling pressures. Right Ventricle The right ventricle is normal in size and function. Right Atrium The right atrium is normal in size. Left Atrium Mildly increased left atrial size. Mitral Valve Trace mitral valve regurgitation. Aortic Valve Thickened aortic valve. Tricuspid Valve Trace to mild tricuspid valve regurgitation. Estimated pulmonary artery peak systolic pressure 52 mmHg with a mean PA pressure of 30 mmHg Pulmonic Valve Trace pulmonary valve regurgitation. Pericardium Normal pericardium without effusion. Aorta Normal ascending aorta dimension. IVC Normal inferior vena cava. CONCLUSIONS Normal LV size ejection fraction of 72%. Mild concentric left- ventricular hypertrophy.no regional wall motion abnormalities. Grade I/IV diastolic dysfunction (abnormal relaxation filling pattern), normal to mildly elevated filling pressures. Mildly increased left atrial size. Thickened aortic valve. Trace mitral valve regurgitation. Trace to mild tricuspid valve regurgitation. Estimated pulmonary artery peak systolic pressure 52 mmHg Trace pulmonary valve regurgitation. There is no pericardial effusion. There are no intracardiac masses. No similar previous studies are available for comparison Dr Fan Antoine MD [facility] (Electronically Signed) Final Date: 26 July 2024 16:43 S
== END 2024-07-26 08:56 | disposition home or self-care (01) ==
LOC: RAD 08:55
PROVIDERS: PCP Family Medicine; Visit Provider Clinical Nurse Specialist Adult Health
DX: R01.1 Cardiac murmur, unspecified (principal); R06.02 Shortness of breath; I36.1 Nonrheumatic tricuspid (valve) insufficiency; I34.0 Nonrheumatic mitral (valve) insufficiency; I37.1 Nonrheumatic pulmonary valve insufficiency; I35.0 Nonrheumatic aortic (valve) stenosis
CPT/HCPCS: 93306

== ENCOUNTER 2024-08-07 09:19 | Outpatient (CLI) | payer MEDICARE, SELFPAY ==
--- NOTE | 2024-08-07 09:29 | XR_ITS ---
WS: [id number] XR chest 2V* [id number] REASON FOR EXAM: cough FINDINGS: Mild tortuosity of the thoracic aorta. Normal heart size Large hiatal hernia. Calcified granulomas disease in both hemithoraces. Opacities in the left lower lung field have nearly resolved compared to the previous examination of . No other interval changes noted. XR/XR chest 2V* [id number] IMPRESSION: Significant resolution of right lower lung opacities, pneumonitis/atelectasis.
== END 2024-08-07 09:20 | disposition home or self-care (01) ==
PROVIDERS: PCP Family Medicine; Visit Provider Family Medicine
DX: J20.9 Acute bronchitis, unspecified (principal); R05.9 Cough, unspecified
CPT/HCPCS: 71046

== ENCOUNTER → 2024-08-09 08:27 | Outpatient (BNVA) | payer MEDICARE, SELFPAY | PROVIDERS: PCP Family Medicine; Visit Provider Family Medicine | DX: R70.0 Elevated erythrocyte sedimentation rate (principal); R73.09 Other abnormal glucose; E78.5 Hyperlipidemia, unspecified; Z13.220 Encounter for screening for lipoid disorders; R79.82 Elevated C-reactive protein (CRP) | CPT/HCPCS: 80061; 83036; 85651; 86141 ==

== ENCOUNTER 2024-08-23 08:34 | Outpatient (CLI) | payer MEDICARE, SELFPAY ==
--- NOTE | 2024-08-23 | ECG_ITS ---
[facility] Test Date: 2024-08-23 Pat Name: Rachel Villalba Department: Room: Gender: Female Assistant Administrator: : 1950 Requested By: Isidro Camara Order Number: [id number] Colten MD: Fan Antoine M.D. Interpretive Statements Exercise/sestamibi/sestamibi stress test exercise/sestamibi/sestamibi stress test PROCEDURE: The baseline electrocardiogram showed normal sinus rhythm with normal ST-Ts. At the baseline, the patient's blood pressure was 156/85 mm Hg with a heart rate of 83. The patient exercised for 4 minutes and 45 seconds on a standard Iván protocol. Patient attained a maximum heart rate of 135 beats per minute(91% of the maximum predicted heart rate) with a blood pressure at the peak exercise of 144/94 mm Hg. The EKG at the peak exercise revealed no significant changes. Patient did not have any chest pain or any significant arrhythmis with the exercise Sestamibi was injected 1 minute prior to the peak exercise During the recovery phase, there were no new changes. Blood pressure at the end of the recovery phase was 136/68 mm Hg with a heart rate of 87 per minute. CONCLUSION: 1. No significant EKG changes with the [treadmill exercise 2. No exercise-induced chest pain or cardiac arrhythmia 3. Slightly impaired exercise tolerance, attained a maximum of 7.0 METs 4. Sestamibi/Sestamibi perfusion results pending; see separate report. Lung unchanged pre/post procedure; Intraprocedure shortess of breath; Symptoms resoled by discharge Electronically Signed On 08-25-2024 20:10:59 CDT by Fan Antoine M.D. [id number]
[2024-08-23 08:53] VITALS: BMI 37.5
--- NOTE | 2024-08-23 08:59 | NMCV_ITS ---
NM anne perf SPECT r/s* [id number] Rachel Villalba Age: 74 Gender: F : 1950 Exam Date: 08/23/2024 09:41 Ordering Phys: Isidro Martínez NP Technologist: VISH Flores Exam Location: [facility] Indications: cp STRESS TEST [facility] IMAGE PROTOCOL Rest/Stress 1 Exercise Day Radiopharmaceutical Dose (mCi) Administration Site Administered by Rest: Tc-99m 10.9 IV Jenelle Roach, REHABILITATION INSPECTOR Sestamibi Stress:Tc-99m 33 IV Jenelle Trangle, REHABILITATION INSPECTOR Sestamibi Rest: 23-Aug-2024 60 Discovery 630 Stress: 23-Aug-2024 30 Discovery 630 Radiopharmaceutical was injected at 88images obtained in supine and prone position. % maximum heart rate. SPECT RESULTS Technical Quality: Good Raw Data Analysis: Adequate Image Corrections: No attenuation or motion correction applied Summed Stress Score: 3 Summed Rest Score: 3 Summed Difference Score: 1 PERFUSION FINDINGS Small area of moderately decreased tracer uptake involving the mid inferolateral and apical inferior regions. Slight reversibility is noted in the inferolateral region FUNCTIONAL RESULTS (calculated via Gated SPECT) Stress Image LV EF (%): 94 Stress EDV (mL):62 TID: 1.04 Stress ESV (mL):4 FUNCTIONAL FINDINGS: Segmental wall motion analysis revealing no gross wall motion abnormalities IMPRESSIONS 1. Myocardial perfusion imaging revealing small area of moderately decreased tracer uptake involving the mid inferolateral and apical inferior region with slight reversibility in the mid inferolateral region, suggestive of myocardial scarring with a very small area of ischemia in the distribution of the left circumflex artery 2. Normal LV ejection fraction of 94%. 3. LV wall motion analysis revealing no gross wall motion abnormalities. 4. Normal LV volume No similar previous studies are available for comparison Dr Fan Antoine MD [facility] (Electronically Signed) Final Date: 23 August 2024 16:52 S
[2024-08-23 10:54] VITALS: BP 133/68; PULSE 83
== END 2024-08-23 08:35 | disposition home or self-care (01) ==
PROVIDERS: PCP Family Medicine; Visit Provider Clinical Nurse Specialist Adult Health
DX: R01.1 Cardiac murmur, unspecified (principal); R06.02 Shortness of breath; R94.39 Abnormal result of other cardiovascular function study
CPT/HCPCS: 36415; 78452; 93017; A9500

== ENCOUNTER → 2024-09-05 13:46 | Outpatient (BNVA) | payer MEDICARE, SELFPAY | PROVIDERS: PCP Family Medicine; Visit Provider Internal Medicine Cardiovascular Disease | DX: R06.02 Shortness of breath (principal); R93.1 Abnormal findings on diagnostic imaging of heart and coronary circulation; R07.89 Other chest pain; I10 Essential (primary) hypertension; G47.33 Obstructive sleep apnea (adult) (pediatric) | CPT/HCPCS: 99214 ==

== ENCOUNTER → 2024-12-04 07:54 | Outpatient (BNVA) | payer MEDICARE, SELFPAY | PROVIDERS: PCP Family Medicine; Visit Provider Nurse Practitioner Family | DX: R06.02 Shortness of breath (principal); R93.1 Abnormal findings on diagnostic imaging of heart and coronary circulation; I10 Essential (primary) hypertension; G47.33 Obstructive sleep apnea (adult) (pediatric) | CPT/HCPCS: 99213 ==

== ENCOUNTER → 2025-03-31 09:58 | Outpatient (BNVA) | payer MEDICARE, SELFPAY | PROVIDERS: PCP Family Medicine; Visit Provider Family Medicine | DX: Z00.00 Encounter for general adult medical examination without abnormal findings (principal); R10.9 Unspecified abdominal pain; E55.9 Vitamin D deficiency, unspecified; R73.09 Other abnormal glucose; Z13.6 Encounter for screening for cardiovascular disorders; Z51.81 Encounter for therapeutic drug level monitoring | CPT/HCPCS: 80053; 80061; 82306; 83036; 85025; 86141 ==

== ENCOUNTER 2025-04-04 08:43 | Outpatient (CLI) | payer MEDICARE, SELFPAY ==
--- NOTE | 2025-04-04 09:00 | MM_ITS ---
WS: [id number] BILATERAL SCREENING DIGITAL TOMOSYNTHESIS MAMMOGRAM WITH CAD HISTORY: Screening COMPARISON: 06/28/2023 Bilateral CC and MLO views with tomosynthesis and synthetic mammography submitted. Computer aided detection analyzed. Breast composition: The breasts are almost entirely fatty. No suspicious masses, microcalcifications or architectural distortion. MM/MM scr BI tomosynthesis [id number] IMPRESSION: BI-RADS: 1 - Negative. FOLLOW UP: 1 Year Follow-up
== END 2025-04-04 08:44 | disposition home or self-care (01) ==
PROVIDERS: PCP Family Medicine; Visit Provider Family Medicine
DX: Z12.31 Encounter for screening mammogram for malignant neoplasm of breast (principal); R92.313 Mammographic fatty tissue density, bilateral breasts
CPT/HCPCS: 77063; 77067

== ENCOUNTER → 2025-06-09 14:16 | Outpatient (BNVA) | payer MEDICARE, SELFPAY | PROVIDERS: PCP Family Medicine; Visit Provider Internal Medicine Cardiovascular Disease | DX: R06.02 Shortness of breath (principal); R93.1 Abnormal findings on diagnostic imaging of heart and coronary circulation; I10 Essential (primary) hypertension; G47.33 Obstructive sleep apnea (adult) (pediatric) | CPT/HCPCS: 99214 ==